=== PATIENT | female | born 1985 | race American Indian/Alaskan Native ===

== ENCOUNTER 2019-10-28 19:03 | Emergency (ER) | payer SELFPAY ==
[2019-10-28 20:53] VITALS: BP 139/85
--- NOTE | 2019-10-28 20:53 | Emergency Department Report ---
Blank Doc - Documentation Documentation: 34-year-old female that presents with right hand pain. This initial assessment/diagnostic orders/clinical plan/treatment(s) is/are subject to change based on patient's health status, clinical progression and re- assessment by fellow clinical providers in the ED. Further treatment and workup at subsequent clinical providers discretion. Patient/guardians urged not to elope from the ED as their condition may be serious if not clinically assessed and managed. Initial orders include: 1- Patient sent to [facility] for further evaluation and treatment 2- xrays
--- NOTE | 2019-10-28 21:30 | XRay Report ---
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 Pain started yesterday. Sharp. Swelling to 2nd right digit. No nlabored. No obvious deforimites. Denies injury. 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 COMPARISON: No relevant prior imaging study available. FINDINGS: No significant skeletal abnormality. There is mild soft tissue swelling in the thenar eminence. No fo reign bodies or soft tissue gas are seen in this region. IMPRESSION: 1. No acute skeletal abnormality. No foreign bodies. Signer Name: Toñito Naranjo MD Signed: 10/28/2019 9:26 PM Workstation Name: [id number]
[2019-10-28] MEDS ORDERED: KETOROLAC 30 MG/1 ML INJ IM ONE (22:28)
[2019-10-28] MEDS ORDERED: ONDANSETRON 4 MG ODT TAB PO ONE (22:28)
[2019-10-28] MEDS ORDERED: dexAMETHasone 20 MG/5 ML VIAL IM ONE (22:28)
[2019-10-28] MEDS ORDERED: oxyCODONE /ACETAMINOPHEN 5-325MG TAB PO ONE (22:28)
--- NOTE | 2019-10-28 22:34 | Emergency Department Report ---
ED Extremity Problem HPI - General Chief complaint: Extremity Injury, Upper Stated complaint: LEFT HAND INJURY Time Seen by Provider: 10/28/19 20:52 Source: patient Mode of arrival: Ambulatory Limitations: No Limitations - History of Present Illness Initial comments: Patient is a 34-year-old -[place] female with no past medical history who presents to the ED with complaint of acute onset persistent nontraumatic right hand pain and swelling for the last 2 days. 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 Patient states that she is unable to perform any active range of motion of the right hand. Patient denies traumatic injury, fall, heavy lifting, numbness and tingling or weakness of right hand, chest pain or shortness of breath, change in vision, fever and chills. MD Complaint: extremity pain (Right hand pain and swelling), extremity swelling (Right hand pain and swelling), joint swelling (Right hand pain and swelling), joint paint (Nontraumatic right hand pain and swelling) -: Sudden, days(s) (2) Location: right (right hand), upper extremity (Right hand) History of Same: No -: Yes arthralgia (right hand) Severity scale (0 -10): 8 Quality: aching, sharp Consistency: constant Improves with: nothing Worsens with: weight bearing, walking, exertion, palpation Associated Symptoms: denies other symptoms, arthralgias. denies: chest pain, shortness of breath, fever, myalgias, rash - Related Data Previous Rx's Medication Instructions Recorded Last Taken Type Naproxen 500 mg PO Q12H PRN #30 tablet 10/28/19 Unknown Rx Prednisone [predniSONE 10 mg 10 mg PO .TAPER #21 tab.ds.pk 10/28/19 Unknown Rx (6-Day Pack, 21 Tabs)] tiZANidine [Zanaflex 4mg TAB] 4 mg PO Q8H PRN #21 tablet 10/28/19 Unknown Rx traMADoL [Ultram] 50 mg PO Q6HR PRN #12 tablet 10/28/19 Unknown Rx Allergies Allergy/AdvReac Type Severity Reaction Status Date / Time No Known Allergies Allergy Verified 10/28/19 19:23 ED Review of Systems ROS: Stated complaint: LEFT HAND INJURY Other details as noted in HPI Constitutional: denies: chills, fever Eyes: denies: eye pain, eye discharge, vision change ENT: denies: ear pain, throat pain Respiratory: denies: cough, shortness of breath, wheezing Cardiovascular: denies: chest pain, palpitations Endocrine: no symptoms reported Gastrointestinal: denies: abdominal pain, nausea, diarrhea Genitourinary: denies: urgency, dysuria, discharge Musculoskeletal: joint swelling (right hand pain and swelling), arthralgia (right hand pain with swelling). denies: back pain Skin: denies: rash, lesions Neurological: denies: headache, weakness, paresthesias Psychiatric: denies: anxiety, depression Hematological/Lymphatic: denies: easy bleeding, easy bruising ED Past Medical Hx - Past Medical History Previous Medical History?: No - Surgical History Past Surgical History?: Yes Additional Surgical History: tonsil. x1 - Social History Smoking Status: Never Smoker Substance Use Type: None - Medications Home Medications: Home Medications Medication Instructions Recorded Confirmed Last Taken Type Naproxen 500 mg PO Q12H PRN #30 tablet 10/28/19 Unknown Rx Prednisone [predniSONE 10 mg 10 mg PO .TAPER #21 tab.ds.pk 10/28/19 Unknown Rx (6-Day Pack, 21 Tabs)] tiZANidine [Zanaflex 4mg TAB] 4 mg PO Q8H PRN #21 tablet 10/28/19 Unknown Rx traMADoL [Ultram] 50 mg PO Q6HR PRN #12 tablet 10/28/19 Unknown Rx ED Physical Exam - General Limitations: No Limitations General appearance: alert, in no apparent distress - Head Head exam: Present: atraumatic, normocephalic, normal inspection - Eye Eye exam: Present: normal appearance, PERRL, EOMI Pupils: Present: normal accommodation - ENT ENT exam: Present: normal exam, normal orophraynx, mucous membranes moist, TM's normal bilaterally, normal external ear exam - Neck Neck exam: Present: normal inspection, full ROM. Absent: tenderness, lymp hadenopathy - Respiratory Respiratory exam: Present: normal lung sounds bilaterally. Absent: respiratory distress, wheezes, rales, stridor, chest wall tenderness, decreased breath sounds, prolonged expiratory - Cardiovascular Cardiovascular Exam: Present: regular rate, normal rhythm, normal heart sounds. Absent: systolic murmur, diastolic murmur, rubs, gallop - GI/Abdominal GI/Abdominal exam: Present: soft, normal bowel sounds. Absent: tenderness, guarding, hyperactive bowel sounds, hypoactive bowel sounds - Extremities Exam Extremities exam: Present: normal inspection, tenderness (Palpable right hand tenderness with swelling), normal capillary refill, joint swelling (Right hand). Absent: full ROM (Palpable right hand tenderness with limited range of motion due to pain) - Back Exam Back exam: Present: normal inspection, full ROM. Absent: tenderness, CVA tenderness (R), CVA tenderness (L), muscle spasm, paraspinal tenderness, vertebral tenderness - Neurological Exam Neurological exam: Present: alert, oriented X3 - Psychiatric Psychiatric exam: Present: normal affect, normal mood - Skin Skin exam: Present: warm, dry, intact, normal color. Absent: rash ED Course Vital Signs 10/28/19 10/28/19 19:46 20:51 Temperature 98.6 F 98.6 F Pulse Rate 71 71 Respiratory 18 18 Rate Blood Pressure 139/85 139/85 O2 Sat by Pulse 100 100 Oximetry ED Medical Decision Making - Radiology Data Radiology results: report reviewed, image reviewed The right hand x-ray shows no acute fractures or subluxations but soft tissue swelling on the right thenar muscles. - Medical Decision Making This is a 34-year-old female who presented to the ED with acute onset nontraumatic right hand pain from overuse at work for 2 days. In the ED, patient is alert and oriented x3 and is not in distress but appears to be in pain. Patient was treated for pain in the ED. Right hand x-ray shows no acute fractures or subluxations but soft tissue swelling on right thenar muscles. Patient had her right hand splinted with Velcro splint and the patient was discharged home on pain medications. Patient symptoms are likely due to muscle strain, or tendinitis of right hand. Patient was advised to follow-up with her primary care physician in 7 to 10 days for reevaluation or return to the ED immediately if symptoms get worse. - Differential Diagnosis Tendonitis; muscle strain; muscle spasm Critical care attestation.: If time is entered above; I have spent that time in minutes in the direct care of this critically ill patient, excluding procedure time. ED Disposition Clinical Impression: Tendonitis of right hand, Strain of muscle of right hand Disposition: - TO HOME OR SELFCARE Is pt being admited?: No Does the pt Need Aspirin: No Condition: Stable Instructions: Muscle Strain (ED), Tendinitis (ED) Additional Instructions: Your symptoms are likely due to acute tendinitis or muscle strain of the right hand. Take medication with food, drink plenty of fluids and follow-up with your primary care physician in 5 to 7 days for reevaluation. Return to the ED immediately if symptoms get worse. Prescriptions: Naproxen 500 mg PO Q12H PRN #30 tablet PRN Reason: Pain , Severe (7-10) Prednisone [predniSONE 10 mg (6-Day Pack, 21 Tabs)] 10 mg PO .TAPER #21 tab.ds.pk traMADoL [Ultram] 50 mg PO Q6HR PRN #12 tablet PRN Reason: Pain tiZANidine [Zanaflex 4mg TAB] 4 mg PO Q8H PRN #21 tablet PRN Reason: Muscle Spasm Referrals: [facility] [Outside] - 3-5 Days Forms: Work/School Release Form(ED) Time of Disposition: 22:39 Print Language: YORUBA
== END 2019-10-28 23:01 | disposition home or self-care (01) ==
LOC: ED 19:03
DX: S66.911A Strain of unspecified muscle, fascia and tendon at wrist and hand level, right hand, initial encounter (principal); M77.9 Enthesopathy, unspecified; Z79.899 Other long term (current) drug therapy; X50.9XXA Other and unspecified overexertion or strenuous movements or postures, initial encounter; Y93.89 Activity, other specified; Y92.89 Other specified places as the place of occurrence of the external cause; Y99.8 Other external cause status
CPT/HCPCS: 29125; 73130; 96372; 99284; J1100; J1885; Q0162